=== PATIENT | male | born 1980 | race Caucasian/White ===

== ENCOUNTER 2022-10-28 07:39 | Emergency (ER) | payer BC ==
[2022-10-28 07:49] VITALS: BP 133/101; PULSE 72; RESP 18; TEMP 98.3; BMI 27.8
[2022-10-28] MEDS ORDERED: KETOROLAC TROMETHAMINE 30 MG/1 ML VIAL IM ONE (07:53)
[2022-10-28] MEDS ORDERED: KETOROLAC TROMETHAMINE 30 MG/1 ML VIAL ONE (07:55)
== END 2022-10-28 08:07 | disposition home or self-care (01) ==
LOC: FER 07:39
PROC: 3E0233Z Introduction of Anti-inflammatory into Muscle, Percutaneous Approach (ICD-10-PCS; principal; 2022-10-28)
DX: U07.1 COVID-19 (principal)
CPT/HCPCS: 0241U-QW; 99284-25